=== PATIENT | female | born 1935 | race Caucasian/White ===

== ENCOUNTER 2016-03-10 09:25 | Emergency (ER) | payer MEDICARE, OTHER ==
[2016-03-10] MEDS ORDERED: KETOROLAC TROMETHAMINE 30 MG/1ML VIAL ONE (09:48)
[2016-03-10] MEDS: 0.9 % SODIUM CHLORIDE 1,000 ML IV SCH (10:00)
[2016-03-10] MEDS: KETOROLAC TROMETHAMINE 30 MG/1ML VIAL IVP ONE (10:02)
--- NOTE | 2016-03-10 10:04 | ED Physician Documentation ---
General Adult - HISTORIAN Historian: patient - HPI Chief Complaint: General Adult Onset: hours Timing: still present Further Comments: yes (80 yo white female who resides at [facility]. Over the last 4 days has been noted to have some dark cloudy urine. This AM patient became tachycardic with a fever of 102. Patient states that she has not felt well today but no specific complaints. Denies and dysuria, urgency or frequency. Has multiple medical problems including atrial fibrilation. She is on chronic anticoagulation therapy. She is currently being treated for an open wound to the right heal.) Last known Well Date: 03/09/16 Last Known Well Time: 22:00 - ROS CONST: fever - PAST HX Past History: A-Fib, other (spinal stenosis, fall with cervical fracture with quadraplegia, polyarthritis, hyperlipidemia) Other History: diabetes Type 2, other (ECHO shows EF 35%) Surgeries/Procedures: other (Total knee replacement) Immunizations: other (unknown) Allergies/Adverse Reactions: Allergies Allergy/AdvReac Type Severity Reaction Status Date / Time Penicillins Allergy Verified 03/10/16 11:50 Sulfa (Sulfonamide Allergy Verified 03/10/16 11:50 Antibiotics) Home Medications: Ambulatory Orders Medication Instructions Recorded Aspirin [Sajan] 81 mg PO DAILY 03/10/16 Cholecalciferol [Vitamin D-3] 5,000 unit PO DAILY 03/10/16 Docusate Sodium [Colace] 200 mg PO BID 03/10/16 Gabapentin [Neurontin] 800 mg PO HS 03/10/16 Lidocaine/Transparent Dressing 1 each TP AM 03/10/16 [Lidocaine 4% Kit] Lisinopril [Prinivil] 2.5 mg PO QD 03/10/16 Loratadine [Claritin] 10 mg PO DAILY 03/10/16 Metoprolol Tartrate [Lopressor] 25 mg PO BID 03/10/16 Pnv95/Ferrous Fumarate/FA 1 each PO DAILY 03/10/16 [ Caplet] Sennosides [Senna] 2 tab PO BID 03/10/16 Warfarin Sodium [Coumadin] 5 mg PO 1800 03/10/16 amLODIPine BESYLATE [Norvasc] 5 mg PO DAILY 03/10/16 - SOCIAL HX Smoking History: non-smoker Alcohol Use: none Drug Use: none - FAMILY HX Family History: No (unable to obtain) - REVIEWED ASSESSMENTS Nursing Assessment Reviewed: Yes Vitals Reviewed: Yes Progress - Progress Progress: 11:16 Patient has been given > 1000 cc NS, is on second bag, patient continues to have some tachycardia related to atrial fib running 120-140. BP has become soft at time with systolic in the 60, is now 99/58. Will give digoxin to try to slow heart rate down some. 12:04 Patient has had >1500cc NS, has been given 0.25mg of digoxin in some mild improvement in her tachycardia. Mentation remains good. Chest x-ray poor tech, possible cardiomegally with mild vascular congestion. ED Results Lab/Radiology - Lab Results Lab Results: EKG: Atrial fib with rapid ventricular response, no acute ischemic changes noted. - Orders Orders: ED Orders Category Date Time Status Ketorolac Tromethamine [Toradol] Med 03/10/16 09:48 Discontinued 30 mg .ROUTE .STK-MED ONE General Adult Physical Exam - PHYSICAL EXAM GENERAL APPEARANCE: patient is answering questions appropriately but is confused some. EENT: pharynx normal, dry mucous membranes NECK: normal inspection, thyroid normal, supple RESPIRATORY: no resp distress, chest non-tender, breath sounds normal. No: wheezes, rales, rhonchi CVS: heart sounds normal, equal pulses, no gallop, tachycardia. No: murmur ABDOMEN: soft, no organomegaly, normal bowel sounds, no abdominal bruit, no distension, non-tender, other (g tube in place) SKIN: warm/dry, normal color EXTREMITIES: other NEURO: oriented X3, CN's nml as tested, sensation nml. No: motor nml Discharge Clincal Impression: UTI (urinary tract infection), early sepsis, Atrial fibrillation with rapid ventricular response Home Medications: Ambulatory Orders Aspirin [Sajan] 81 mg PO DAILY 03/10/16 Cholecalciferol [Vitamin D-3] 5,000 unit PO DAILY 03/10/16 Docusate Sodium [Colace] 200 mg PO BID 03/10/16 Gabapentin [Neurontin] 800 mg PO HS 03/10/16 Lidocaine/Transparent Dressing [Lidocaine 4% Kit] 1 each TP AM 03/10/16 Lisinopril [Prinivil] 2.5 mg PO QD 03/10/16 Loratadine [Claritin] 10 mg PO DAILY 03/10/16 Metoprolol Tartrate [Lopressor] 25 mg PO BID 03/10/16 Pnv95/Ferrous Fumarate/FA [ Caplet] 1 each PO DAILY 03/10/16 Sennosides [Senna] 2 tab PO BID 03/10/16 Warfarin Sodium [Coumadin] 5 mg PO 1800 03/10/16 amLODIPine BESYLATE [Norvasc] 5 mg PO DAILY 03/10/16 Condition: Stable Disposition: HOME, SELF-CARE Decision to Admit: [id number] Date of Decison to Admit: 03/10/16 Decision Time: 12:15
[2016-03-10 10:24] LABS: eGFR (African) > 60; eGFR (Non-African) > 60
[2016-03-10 10:36] LABS: MONOCYTES % 3 % (0-11); SEGMENTED NEUTROPHILS % 86 % (39-79)
[2016-03-10] MEDS ORDERED: 0.9 % SODIUM CHLORIDE 1,000 ML IV ONE (10:46)
[2016-03-10] MEDS ORDERED: ACETAMINOPHEN 325 MG TABLET PO ONE (11:01)
[2016-03-10] MEDS: 0.9 % SODIUM CHLORIDE 500 ML IV ONE (11:20)
[2016-03-10 11:29] LABS: APPEARANCE,URINE Cloudy (CLEAR); COLOR,URINE Orange (YELLOW); OCCULT BLOOD,URINE 2+ (NEGATIVE); PH URINE 5.5 (5.0 - 8.0); UROBILINOGEN URINE 0.2 Eu (0.2-1.0)
[2016-03-10] MEDS: DIGOXIN 250MCG/1ML IVP ONE (11:39)
[2016-03-10] MEDS ORDERED: DIGOXIN 250MCG/1ML IVP ONE (12:08)
[2016-03-10] MEDS ORDERED: cefTRIAXone SODIUM 1 GM VIAL ONE (12:42)
[2016-03-10] MEDS ORDERED: 0.9 % SODIUM CHLORIDE 100 ML IV ONE (12:43)
[2016-03-10] MEDS: cefTRIAXone SODIUM 1 GM in 0.9 % SODIUM CHLORIDE 50 ML IV SCH (12:45)
[2016-03-10 13:44] VITALS: BP 106/57
--- NOTE | 2016-03-10 14:06 | Diagnostic Imaging Report ---
[facility] [address] [facility].[address] [address] Report Submission Date: Mar 10, 2016 12:00:58 PM CLAY DIGGER Patient Study Name: BEVERLY TODD Date: Mar 10, 2016 10:23:03 AM CLAY DIGGER Modality Type: CR Gender: F Description: SHOULDER : 31 Institution: [facility] Physician: NICOLAS JOHNSON Right shoulder - two views Clinical history: Pain. Findings: Examination right shoulder in AP and transscapular Y views demonstrates inferior subluxation of the humerus relative to the glenoid. There is no evidence of anterior or posterior displacement on the transscapular view. Degenerative changes are seen in the acromioclavicular joint. Impression: 1. Inferior subluxation of the humerus. 2. Degenerative changes. Electronically signed on Mar 10, 2016 12:00:58 PM CLAY DIGGER by: Endy COVARRUBIAS
--- NOTE | 2016-03-10 14:06 | Diagnostic Imaging Report ---
[facility] [address] [facility] [address] [place], [place]. [address] Report Submission Date: Mar 10, 2016 12:01:39 PM [employer]ORS AND GENERAT[employer] INSPECTOR Patient Study Name: BEVERLY TODD Date: Mar 10, 2016 10:21:03 AM MOTORS AND GENERATORS INSPECTOR Modality Type: CR Gender: F Description: CHEST : 31 Institution: [facility] Physician ELIZABETH VALENZUELA - ER Chest AP portable The exam: March 10, 2016. Clinical history: Shortness of breath and febrile. Findings: There are no comparison studies. Cardiomegaly is present. There is no definite infiltrate or effusion, however, the left lung base is poorly visualized. The trachea is midline. There is mild pulmonary vascular congestion. Impression: Cardiomegaly and mild pulmonary vascular congestion. Electronically signed on Mar 10, 2016 12:01:39 PM MOTORS AND GENERATORS INSPECTOR by: Ness COVARRUBIAS
--- NOTE | 2016-03-10 16:57 | Diagnostic Imaging Report ---
[facility] [address] [facility] [address] [address] Report Submission Date: Mar 10, 2016 4:02:00 PM DETAILER Patient Study Name: BEVERLY TODD Date: Mar 10, 2016 10:26:04 AM DETAILER Modality Type: CR Gender: F Description: UPPER EXTREMITY : 31 Institution: [facility] Physician: NICOLAS JOHNSON Right elbow 2 views portable Clinical history: Pain Very small marginal spurs. No fracture, dislocation or joint effusion. Impression: Mild osteoarthritis without fractures Electronically signed on Mar 10, 2016 4:02:00 PM DETAILER by: Lorenzo COVARRUBIAS
== END 2016-03-10 13:15 | disposition home or self-care (01) ==
LOC: ED 09:25
DX: N39.0 Urinary tract infection, site not specified (principal); I48.91 Unspecified atrial fibrillation
CPT/HCPCS: 51702; 71010; 73030; 73070; 80053; 81002; 84484; 85025; 85610; 87040; 87088; 87400; 93005; J0696; J1160; J1885; J7030; J7060; 87186; 96372; 99283; 99284; S1016

== ENCOUNTER 2016-03-28 08:10 | Inpatient (IN) | payer MEDICARE, OTHER ==
[2016-03-28 08:31] LABS: APPEARANCE,URINE Slightly Cloudy (CLEAR); COLOR,URINE Yellow (YELLOW); OCCULT BLOOD,URINE 2+ (NEGATIVE); PH URINE 5.5 (5.0 - 8.0); UROBILINOGEN URINE 0.2 Eu (0.2-1.0)
[2016-03-28 08:32] LABS: BASOPHILS % 0.3 (0.0-1.5); EOSINOPHILS % 1.2 % (0.0-6.8); LYMPHOCYTES # 1.4 # k/uL (0.6-4.0); MONOCYTES # 0.6 # k/uL (0.0-0.9); MONOCYTES % 3.4 % (0.0-11.0); NEUTROPHILS # 14.2 # k/uL (1.4-7.7)
[2016-03-28 08:49] LABS: eGFR (African) > 60; eGFR (Non-African) > 60
--- NOTE | 2016-03-28 08:51 | ED Physician Documentation ---
General Adult - HISTORIAN Historian: patient - HPI Stated Complaint: Urinary Symptoms Chief Complaint: General Adult Timing: still present Further Comments: yes (Yesterday [facility] staff reports that patient seemed to be confused some. Continues today and was brought to the ED for further evaluation and treatment. Patient states that she has been sleepy some over the last two days denies any other complaints. No chest pain/pressure, cough, abd pain, body aches, headaces fever or chills. Patient denises any UTI symptoms.) - ROS CONST: denies: fever - PAST HX Past History: A-Fib, hypertension, other (pressure ulcer right heal) Other History: diabetes Type 2, other (spinal stenosis cervical area, quadraplegia) Surgeries/Procedures: other (cervical spinal fusion related to fall) Allergies/Adverse Reactions: Allergies Allergy/AdvReac Type Severity Reaction Status Date / Time Penicillins Allergy Verified 03/10/16 11:50 Sulfa (Sulfonamide Allergy Verified 03/10/16 11:50 Antibiotics) fentanyl AdvReac No Reaction Verified 03/28/16 08:27 Home Medications: Ambulatory Orders Medication Instructions Recorded Aspirin [Sajan] 81 mg PO DAILY 03/10/16 Cholecalciferol [Vitamin D-3] 5,000 unit PO DAILY 03/10/16 Docusate Sodium [Colace] 200 mg PO BID 03/10/16 Gabapentin [Neurontin] 800 mg PO HS 03/10/16 Lidocaine/Transparent Dressing 1 each TP AM 03/10/16 [Lidocaine 4% Kit] Lisinopril [Prinivil] 20 mg PO QD 03/10/16 Loratadine [Claritin] 10 mg PO DAILY 03/10/16 Metoprolol Tartrate [Lopressor] 25 mg PO BID 03/10/16 Pnv95/Ferrous Fumarate/FA 1 each PO DAILY 03/10/16 [ Caplet] Sennosides [Senna] 2 tab PO BID 03/10/16 Warfarin Sodium [Coumadin] 4 mg PO 1800 03/10/16 amLODIPine BESYLATE [Norvasc] 5 mg PO DAILY 03/10/16 - SOCIAL HX Smoking History: quit greater than 1 year (years ago) Alcohol Use: none Drug Use: none - FAMILY HX Family History: No - VITAL SIGNS Vital Signs: Vital Signs Temp Pulse Resp BP Pulse Ox 97.7 F 102 H 20 93/52 93 03/28/16 08:10 03/28/16 08:10 03/28/16 08:10 03/28/16 08:10 03/28/16 08:10 - REVIEWED ASSESSMENTS Nursing Assessment Reviewed: Yes Vitals Reviewed: Yes ED Results Lab/Radiology - Lab Results Lab Results: Lab Results 03/28/16 03/28/16 08:20 08:20 WBC 16.60 K/ul H K/ul (4.00-12.00) RBC 4.01 M/ul M/ul (3.90-5.20) Hgb 11.6 g/dL L g/dL (12.0-16.0) Hct 36.8 % % (34.5-46.5) MCV 91.8 fl fl (80.0-100.0) MCH 29.0 pg pg (28.0-34.0) MCHC 31.6 g/dL g/dL (30.0-36.0) RDW 14.6 % H % (11.3-14.3) Plt Count 246 K/mm3 K/mm3 (130-400) Neut % (Auto) 86.0 % H % (39.0-79.0) Lymph % (Auto) 8.5 % L % (16.0-50.0) [place] % (Auto) 3.4 % % (0.0-11.0) Eos % (Auto) 1.2 % % (0.0-6.8) Baso % (Auto) 0.3 (0.0-1.5) Neut # 14.2 # k/uL H # k/uL (1.4-7.7) Lymph # 1.4 # k/uL # k/uL (0.6-4.0) [place] # 0.6 # k/uL # k/uL (0.0-0.9) Eos # 0.2 # k/uL # k/uL (0.0-0.6) Baso # 0.0 # k/uL # k/uL (0.0-0.5) Reactive Lymphs % 0.6 % % (0.0-5.0) Reactive Lymphs # 0.1 # k/uL # k/uL (0.0-0.8) Urine Color Yellow (YELLOW) Urine Appearance Slightly cloudy (CLEAR) Urine pH 5.5 (5.0 - 8.0) Ur Specific [place] 1.025 (1.010-1.030) Urine Protein 2+ mg/dL H mg/dL (NEGATIVE) Urine Ketones Trace mg/dL mg/dL (NEGATIVE) Urine Occult Blood 2+ H (NEGATIVE) Urine Nitrite Positive (NEGATIVE) Urine Bilirubin 1+ H (NEGATIVE) Urine Urobilinogen 0.2 Eu Eu (0.2-1.0) Ur Leukocyte Esterase 3+ H (NEGATIVE) Urine RBC 2-5 H (0-2 HPF) Urine WBC >100 H (0-5 HPF) Ur Squamous Epith Cells Few (NEG-FEW) Urine Glucose Negative mg/dL mg/dL (NEGATIVE) - Orders Orders: ED Orders Category Date Time Status Urinary catheterization 1T Care 03/28/16 08:20 Active CBC/PLATELET/DIFF Routine Lab 03/28/16 08:20 Completed CMP Routine Lab 03/28/16 08:20 Received PT [PT-INR] Routine Lab 03/28/16 08:20 Received URINALYSIS Routine Lab 03/28/16 08:20 Received General Adult Physical Exam - PHYSICAL EXAM GENERAL APPEARANCE: mild distress EENT: eye inspection normal, dry mucous membranes NECK: normal inspection, supple. No: lymphadenopathy, stiff neck RESPIRATORY: no resp distress, chest non-tender, breath sounds normal. No: wheezes, rales, rhonchi CVS: heart sounds normal, equal pulses, irregularly irregular rhy ABDOMEN: soft, no organomegaly, normal bowel sounds, no abdominal bruit, no distension, non-tender. No: distended, guarding BACK: no CVA tenderness SKIN: warm/dry, normal color, other (open wound to the righ heal, RLE has some warmth and erythema) EXTREMITIES: non-tender NEURO: oriented X3 (mildly lethatgic), CN's nml as tested, sensation nml ( decrease motr strength in all four ext, R>L). No: motor nml Discharge Clincal Impression: Urinary tract infection, Cellulitis of right lower leg Home Medications: Ambulatory Orders Aspirin [Sajan] 81 mg PO DAILY 03/10/16 Cholecalciferol [Vitamin D-3] 5,000 unit PO DAILY 03/10/16 Docusate Sodium [Colace] 200 mg PO BID 03/10/16 Gabapentin [Neurontin] 800 mg PO HS 03/10/16 Lidocaine/Transparent Dressing [Lidocaine 4% Kit] 1 each TP AM 03/10/16 Lisinopril [Prinivil] 20 mg PO QD 03/10/16 Loratadine [Claritin] 10 mg PO DAILY 03/10/16 Metoprolol Tartrate [Lopressor] 25 mg PO BID 03/10/16 Pnv95/Ferrous Fumarate/FA [ Caplet] 1 each PO DAILY 03/10/16 Sennosides [Senna] 2 tab PO BID 03/10/16 Warfarin Sodium [Coumadin] 4 mg PO 1800 03/10/16 amLODIPine BESYLATE [Norvasc] 5 mg PO DAILY 03/10/16 Condition: Stable Disposition: 09 ADMITTED INPATIENT Decision to Admit: [id number] Date of Decison to Admit: 03/28/16 Decision Time: 09:26
[2016-03-28] MEDS ORDERED: cefTRIAXone SODIUM ADVANTAGE 1 GM VIAL.PORT IV ONE (09:25)
[2016-03-28] MEDS ORDERED: 0.9 % SODIUM CHLORIDE 100 ML IV ONE (09:25)
[2016-03-28] MEDS: cefTRIAXone SODIUM 1 GM in 0.9 % SODIUM CHLORIDE 50 ML IV SCH (09:44)
[2016-03-28] MEDS: 0.9 % SODIUM CHLORIDE 1,000 ML IV SCH (10:40)
[2016-03-28] MEDS ORDERED: ENOXAPARIN SODIUM 40 MG/0.4 ML DISP.SYRIN SQ SCH (11:00)
--- NOTE | 2016-03-28 13:35 | History and Physical Report ---
History of Present Illnes - History of Present Illness Reason for Visit: Sepsis/UTI/RLE cellulitis History of Present Illness: This is an [address] [facility] who presented to the ER today with mental status changes and fever. She was noted to have a right lower extremity cellulitis, gross pyuria, hypotension and marked leukocytosis. She is admitted for IV antibiotics, IV fluid resuscitation and evaluation. Nursing at [facility] state that she is usually alert and oriented and talkative. Over the past few days, she has become less able to talk and this morning was difficult to arouse. As a result, they called me and I recommended that she be sent to the ER where the above findings were noted leading to her admission. - Past Medical History Cardiac: HTN, Syncope, Hyperlipidemia, Other (Left ventricular hypertrophy) Musculoskeletal: Other (Cervical spinal stenosis) Renal/: Other (Urinary retention) Endocrine: Diabetes (on oral medications) - Past Surgical History Past Surgical History: Total Knee Replacement (bilateral), Other (Feeding tube placement fall of 2015, now discontinued). denies: CABG - Past Social History Smoke: No Alcohol: None Drugs: None Lives: Other (At [facility]) - Health Maintenance Health Maintenance: Cholesterol Influenza Vaccine: Current for this Influenza Season Pneumonia Vaccine: Yes Resuscitation Status: Resusciation Status Resuscitation Status Do Not Resuscitate Review of Systems - Review of Systems Constitutional: Fever. negative: Chills Eyes: negative: pain ENT: negative: Ear Pain Respiratory: negative: Cough, Dry Cardiovascular: negative: Chest Pain Gastrointestinal: negative: Nausea, Vomiting Genitourinary: negative: Dysuria Musculoskeletal: Other (fairly dense right hemiparesis with some weakness of LUE and LLE). negative: Neck Pain Skin: Rash, Other (cellulitis of right lower extremity and open wound of right heel.) Neurological: Weakness, Confusion - Medications/Allergies Allergies/Adverse Reactions: Allergies Allergy/AdvReac Type Severity Reaction Status Date / Time Penicillins Allergy Verified 03/28/16 13:03 Sulfa (Sulfonamide Allergy Verified 03/28/16 13:03 Antibiotics) fentanyl AdvReac No Reaction Verified 03/28/16 13:03 Current Inpatient Medications: Current Inpatient Medications Amlodipine Besylate (Norvasc) 5 mg PO DAILY [facility] Aspirin (Aspirin) 81 mg PO DAILY [facility] Cholecalciferol (Vitamin D-3) 5,000 unit PO DAILY [facility] Docusate Sodium (Colace) 200 mg PO BID [facility] Gabapentin (Neurontin) 800 mg PO HS [facility] Ceftriaxone Sodium 1 gm/ (Sodium Chloride) 50 mls @ 100 mls/hr IV QD [facility] Last Admin: 03/28/16 09:44 Dose: 100 mls/hr Sodium Chloride (Normal Saline) 1,000 mls @ 100 mls/hr IV Q10H [facility] Lisinopril (Prinivil) 2.5 mg PO DAILY [facility] Loratadine (Claritin) 10 mg PO DAILY [facility] Miscellaneous (Metoprolol Tartrate [Lopressor]) 25 mg PO BID [facility] Sennosides (Senokot) mg PO BID [facility] Warfarin Sodium (Coumadin) 4 mg PO D [facility] Exam - Exam Vital Signs: Vital Signs (72 hours) 03/28/16 10:00 Pulse Rate [ 78 Pulse ox] Respiratory 18 Rate Blood Pressure 101/75 [Right Arm] O2 Sat by Pulse 95 Oximetry General: Oriented to Person, Moderate distress, Morbidly Obese. No: Alert, Oriented to Place, Oriented to Time HEENT: Atraumatic, PERRLA, Other (Mucous membranes dry) Neck: No: Stridor Lungs: Wheezes (scant) Cardiovascular: Regular rate Murmur: No: Systolic Murmur (body habitus makes evaluation of heart sound difficult) Murmur Location: No: [place] Abdomen: Normal bowel sounds, Soft, No tenderness, Other (scar from previous PEG tube) Genitourinary: Other Male Genitourinary: Other Female Genitourinary: No: Prolapse Integumentary: Normal, Dry Extremities: No clubbing, No cyanosis, No edema, Other (scars from bilateral TKRs, warmth and erythema of right anterior chacon, open wound of right heel is noted) Neurological: Right Sided Weakness, Generalized Weakness Psych/Mental Status: Other (Minimally responsive) Assessment/Plan - Assessment/Plan (1) Sepsis Status: Acute Current Visit: Yes Assessment: Due to UTI and RLE infection Plan: Continue Rocephin Add clindamycin (2) Cellulitis of right lower leg Status: Acute Current Visit: Yes Assessment: New finding Plan: Will expand coverage from rocephin to include clindamycin to cover gram negative /anaerobes (3) Urinary tract infection Status: Acute Current Visit: Yes Assessment: With resultant sepsis, possibly complicated by concommitant right lower extremity infection Plan: Blood and urine cultures are pending (4) Morbid obesity Status: Acute Current Visit: Yes Qualifiers: Obesity type: due to excess calories Qualified Code(s): E66.01 - Morbid ( severe) obesity due to excess calories Assessment: Chronic (5) Atrial fibrillation with rapid ventricular response Status: Acute Current Visit: No Assessment: Current rate controlled and with therapeutic INR VTE Assessment - RISK FACTOR SCORE VTE RISK FACTOR SCORES: AGE OVER 60 YEARS, ACUTE INFECTION OTHER THEN SEPSIS - RISK VTE MODERATE RISK: SCORE OF 2 (RISK PROXIMAL DVT 2-4%) PROPHYAXIS NEEDED (Does not need pharmaceutical DVT prophylaxis due to warfarin therapy, added BETTY hernandez)
[2016-03-28] MEDS ORDERED: IBUPROFEN 200 MG TABLET PO PRN (13:44)
[2016-03-28] MEDS ORDERED: ACETAMINOPHEN 325 MG TABLET PO PRN (13:44)
[2016-03-28] MEDS ORDERED: ONDANSETRON HCL 4 MG TAB.RAPDIS PO PRN (13:50)
[2016-03-28] MEDS ORDERED: IBUPROFEN 400 MG TABLET PO ONE (14:48)
[2016-03-28] MEDS ORDERED: WARFARIN SODIUM 1 MG TABLET PO ONE (14:48)
[2016-03-28] MEDS ORDERED: METOPROLOL TARTRATE 50 MG TABLET ONE ×2 (14:48→15:55)
[2016-03-28] MEDS: METOPROLOL TARTRATE 25 MG PO SCH ×2 (14:51→21:14)
[2016-03-28] MEDS: LISINOPRIL 2.5 MG TABLET PO SCH (14:51)
[2016-03-28] MEDS ORDERED: GABAPENTIN 100 MG CAPSULE ONE (15:55)
[2016-03-28] MEDS ORDERED: GABAPENTIN 300 MG CAPSULE ONE (15:55)
[2016-03-28 18:11] VITALS: BMI 43.8
[2016-03-28] MEDS: WARFARIN SODIUM 1 MG TABLET PO SCH (18:32)
[2016-03-28] MEDS: DOCUSATE SODIUM 100 MG CAPSULE PO SCH (21:13)
[2016-03-28] MEDS: GABAPENTIN 100 MG CAPSULE PO SCH (21:13)
[2016-03-28] MEDS: MELATONIN 3 MG TABLET PO SCH ×2 (22:53→23:28)
[2016-03-29] MEDS: 0.9 % SODIUM CHLORIDE 1,000 ML IV SCH ×4 (02:04→16:30)
[2016-03-29] MEDS ORDERED: METOPROLOL TARTRATE 50 MG TABLET ONE ×2 (04:56→12:30)
[2016-03-29 06:46] LABS: BASOPHILS % 0.4 (0.0-1.5); EOSINOPHILS % 2.1 % (0.0-6.8); LYMPHOCYTES # 1.7 # k/uL (0.6-4.0); MEAN CORPUSCULAR HEMOGLOBIN 29.7 pg (28.0-34.0); MONOCYTES # 0.4 # k/uL (0.0-0.9); MONOCYTES % 5.3 % (0.0-11.0); NEUTROPHILS # 5.6 # k/uL (1.4-7.7)
[2016-03-29 07:00] LABS: eGFR (African) > 60; eGFR (Non-African) > 60
[2016-03-29] MEDS: MULTIVITAMIN 1 EACH TABLET PO SCH (08:41)
[2016-03-29] MEDS: amLODIPine BESYLATE 5 MG TABLET PO SCH (08:41)
[2016-03-29] MEDS: ASPIRIN 81 MG CHEW TAB PO SCH (08:41)
[2016-03-29] MEDS: LORATADINE 10 MG TABLET PO SCH (08:41)
[2016-03-29] MEDS: CHOLECALCIFEROL 1,000 UNIT TABLET PO SCH (08:42)
[2016-03-29] MEDS: METOPROLOL TARTRATE 25 MG PO SCH ×2 (08:42→21:45)
[2016-03-29] MEDS: LISINOPRIL 2.5 MG TABLET PO SCH (08:42)
[2016-03-29] MEDS: DOCUSATE SODIUM 100 MG CAPSULE PO SCH ×2 (08:42→21:46)
[2016-03-29] MEDS ORDERED: cefTRIAXone SODIUM ADVANTAGE 1 GM VIAL.PORT IV ONE (09:10)
[2016-03-29] MEDS ORDERED: 0.9 % SODIUM CHLORIDE 100 ML IV ONE (09:10)
[2016-03-29] MEDS: cefTRIAXone SODIUM 1 GM in 0.9 % SODIUM CHLORIDE 50 ML IV SCH (09:28)
--- NOTE | 2016-03-29 11:29 | Inpatient Progress Note ---
Subjective - Required Recertification Statement I anticipate X number of days because-include discharge plan: 2 - Review of Systems Events since last encounter: Sushma is feeling much better this morning and is now alert and oriented. Her white count has come down to 8K and she is now afebrile. She has some appetite and is anxious for discharge back to [facility]. General: Denies: Chills, Night Sweats HEENT: Denies: Head Aches Pulmonary: Denies: Dyspnea, Cough Cardiovascular: Denies: Chest Pain Gastrointestinal: Denies: Nausea, Vomiting Genitourinary: Denies: Dysuria Musculoskeletal: Denies: Neck Pain, Shoulder Pain Neurological: Weakness, Confusion (markedly improved). Denies: Seizures Objective - Exam Vitals and I&O: Vital Signs Temp 98.5 F 03/29/16 06:00 Pulse 77 03/29/16 06:00 Resp 20 03/29/16 06:00 BP 136/72 03/29/16 06:00 Pulse Ox 100 03/29/16 06:00 Intake & Output 03/28/16 03/28/16 03/29/16 11:59 23:59 11:59 Intake Total 780 1200 Balance 780 1200 Weight 127.006 kg Intake: IV 1200 Left Hand 1200 Oral 780 Other: Voiding Method Incontinent # Voids 1 2 # Bowel Movements 1 General: Alert, Oriented to Person, Oriented to Place, Oriented to Time, Cooperative, No acute distress HEENT: Atraumatic Neck: Supple, No JVD Lungs: Clear to auscultation, Normal air movement, Prolonged Expiration (very mildly) Cardiovascular: Regular rate Abdomen: Normal bowel sounds, Soft, No tenderness Extremities: No clubbing, Other (Warmth and erythema of right anterior chacon is markedly improved) Skin: Normal Neurological: Normal speech Psych/Mental Status: Mental status NL - Results Results: Laboratory Results WBC 8.00 K/ul (4.00-12.00) 03/29/16 06:25 RBC 3.72 M/ul (3.90-5.20) L 03/29/16 06:25 Hgb 11.0 g/dL (12.0-16.0) L 03/29/16 06:25 Hct 35.2 % (34.5-46.5) 03/29/16 06:25 MCV 94.6 fl (80.0-100.0) 03/29/16 06:25 MCH 29.7 pg (28.0-34.0) 03/29/16 06:25 MCHC 31.4 g/dL (30.0-36.0) 03/29/16 06:25 RDW 14.7 % (11.3-14.3) H 03/29/16 06:25 Plt Count 200 K/mm3 (130-400) 03/29/16 06:25 Neut % (Auto) 69.7 % (39.0-79.0) 03/29/16 06:25 Lymph % (Auto) 20.9 % (16.0-50.0) 03/29/16 06:25 [place] % (Auto) 5.3 % (0.0-11.0) 03/29/16 06:25 Eos % (Auto) 2.1 % (0.0-6.8) 03/29/16 06:25 Baso % (Auto) 0.4 (0.0-1.5) 03/29/16 06:25 Neut # 5.6 # k/uL (1.4-7.7) 03/29/16 06:25 Lymph # 1.7 # k/uL (0.6-4.0) 03/29/16 06:25 [place] # 0.4 # k/uL (0.0-0.9) 03/29/16 06:25 Eos # 0.2 # k/uL (0.0-0.6) 03/29/16 06:25 Baso # 0.0 # k/uL (0.0-0.5) 03/29/16 06:25 Reactive Lymphs % 1.6 % (0.0-5.0) 03/29/16 06:25 Reactive Lymphs # 0.1 # k/uL (0.0-0.8) 03/29/16 06:25 PT 25.5 Seconds (9.7-11.5) H 03/28/16 08:20 INR 2.4 (0.9-1.1) H 03/28/16 08:20 Sodium 135 mmol/L (136-145) L 03/29/16 06:25 Potassium 4.2 mmol/L (3.5-5.0) 03/29/16 06:25 Chloride 105 mmol/L (98-110) 03/29/16 06:25 Carbon Dioxide 30 mmol/L (20-32) 03/29/16 06:25 BUN 19 mg/dL (10-26) 03/29/16 06:25 Creatinine 0.7 mg/dL (0.4-1.5) 03/29/16 06:25 Estimated Creat Clear 146 03/29/16 06:25 Est GFR ( Amer) > 60 (60-) 03/29/16 06:25 Est GFR (Non-Af Amer) > 60 (60-) 03/29/16 06:25 Glucose 99 mg/dL (70-99) 03/29/16 06:25 Calcium 9.5 mg/dL (8.5-10.5) 03/29/16 06:25 Total Bilirubin 0.5 mg/dL (0.2-1.2) 03/29/16 06:25 AST 15 U/L (0-41) 03/29/16 06:25 ALT 10 U/L (0-45) 03/29/16 06:25 Alkaline Phosphatase 39 U/L (46-116) L 03/29/16 06:25 Total Protein 7.1 g/dL (6.0-8.5) 03/29/16 06:25 Albumin 3.2 g/dL (3.0-5.5) 03/29/16 06:25 Urine Color Yellow (YELLOW) 03/28/16 08:20 Urine Appearance Slightly cloudy (CLEAR) 03/28/16 08:20 Urine pH 5.5 (5.0 - 8.0) 03/28/16 08:20 Ur Specific [place] 1.025 (1.010-1.030) 03/28/16 08:20 Urine Protein 2+ mg/dL (NEGATIVE) H 03/28/16 08:20 Urine Ketones Trace mg/dL (NEGATIVE) 03/28/16 08:20 Urine Occult Blood 2+ (NEGATIVE) H 03/28/16 08:20 Urine Nitrite Positive (NEGATIVE) 03/28/16 08:20 Urine Bilirubin 1+ (NEGATIVE) H 03/28/16 08:20 Urine Urobilinogen 0.2 Eu (0.2-1.0) 03/28/16 08:20 Ur Leukocyte Esterase 3+ (NEGATIVE) H 03/28/16 08:20 Urine RBC 2-5 (0-2 HPF) H 03/28/16 08:20 Urine WBC >100 (0-5 HPF) H 03/28/16 08:20 Ur Squamous Epith Cells Few (NEG-FEW) 03/28/16 08:20 Urine Glucose Negative mg/dL (NEGATIVE) 03/28/16 08:20 Assessment/Plan - Assessment/Plan (1) Sepsis Status: Acute Current Visit: Yes Assessment: Improved with current antibiotic therapy (2) Cellulitis of right lower leg Status: Acute Current Visit: Yes Assessment: Improved (3) Urinary tract infection Status: Acute Current Visit: Yes Assessment: Improved (4) Morbid obesity Status: Acute Current Visit: Yes Qualifiers: Obesity type: due to excess calories Qualified Code(s): E66.01 - Morbid ( severe) obesity due to excess calories (5) Atrial fibrillation with rapid ventricular response Status: Acute Current Visit: No Assessment: With therapeutic INR
[2016-03-29] MEDS ORDERED: GABAPENTIN 100 MG CAPSULE ONE (12:30)
[2016-03-29] MEDS ORDERED: GABAPENTIN 300 MG CAPSULE ONE (12:30)
[2016-03-29] MEDS ORDERED: WARFARIN SODIUM 1 MG TABLET PO ONE (12:30)
[2016-03-29] MEDS ORDERED: NYSTATIN POWDER BOTTLE TP ONE (14:55)
[2016-03-29] MEDS: WARFARIN SODIUM 1 MG TABLET PO SCH (16:13)
--- NOTE | 2016-03-29 17:06 | Diagnostic Imaging Report ---
[facility] [address] [facility].[address] [address] ~ ~ ~ ~ Report Submission Date: Mar 29, 2016 12:14:41 PM TILE AND MARBLE INSTALLER Patient ~ Study Name: BEVERLY TODD ~ Date: Mar 29, 2016 11:52:41 AM TILE AND MARBLE INSTALLER ~ Modality Type: CR Gender: F ~ Description: CHEST : 31 ~ Institution: [facility] Physician: NED CAMARA ~ ~ ~ ~ Chest -one view CLINICAL HISTORY: ~ Cough and fever. ~Leukocytosis. FINDINGS: ~ Examination of the chest single portable AP view 03/29/2016 1152 hr with comparison to examination of 03/10/2016 demonstrates cardiomegaly and aortic atherosclerosis. ~The retrocardiac region is dense suggesting left lower lobe infiltrate or atelectasis. IMPRESSION: ~ Hypoventilation. ~ Dense retrocardiac region consistent with left lower lobe infiltrate or atelectasis. ~ Electronically signed on Mar 29, 2016 12:14:41 PM TILE AND MARBLE INSTALLER by: Endy COVARRUBIAS
[2016-03-29] MEDS ORDERED: WARFARIN SODIUM 1 MG TABLET PO SCH (18:00)
[2016-03-29] MEDS: GABAPENTIN 100 MG CAPSULE PO SCH (21:47)
[2016-03-29] MEDS: NYSTATIN POWDER BOTTLE TP SCH (21:47)
[2016-03-29] MEDS: MELATONIN 3 MG TABLET PO SCH (21:47)
[2016-03-30] MEDS: 0.9 % SODIUM CHLORIDE 1,000 ML IV SCH ×2 (02:11→12:29)
[2016-03-30] MEDS ORDERED: METOPROLOL TARTRATE 50 MG TABLET ONE (04:33)
--- NOTE | 2016-03-30 07:57 | Discharge Summary ---
Discharge Summary - Discharge Sumary History of Present Illness: This is an [address] Andrews [facility] who presented to the ER today with mental status changes and fever. She was noted to have a right lower extremity cellulitis, gross pyuria, hypotension and marked leukocytosis. She is admitted for IV antibiotics, IV fluid resuscitation and evaluation. Nursing at [facility] state that she is usually alert and oriented and talkative. Over the past few days, she has become less able to talk and this morning was difficult to arouse. As a result, they called me and I recommended that she be sent to the ER where the above findings were noted leading to her admission. Condition at Discharge: Stable Home Medications: Ambulatory Orders Medication Instructions Recorded Aspirin [Sajan] 81 mg PO DAILY 03/10/16 Cholecalciferol [Vitamin D-3] 5,000 unit PO DAILY 03/10/16 Docusate Sodium [Colace] 200 mg PO BID 03/10/16 Gabapentin [Neurontin] 800 mg PO HS 03/10/16 Lidocaine/Transparent Dressing 1 each TP AM 03/10/16 [Lidocaine 4% Kit] Lisinopril [Prinivil] 20 mg PO QD 03/10/16 Loratadine [Claritin] 10 mg PO DAILY 03/10/16 Metoprolol Tartrate [Lopressor] 25 mg PO BID 03/10/16 Pnv95/Ferrous Fumarate/FA 1 each PO DAILY 03/10/16 [ Caplet] Sennosides [Senna] 2 tab PO BID 03/10/16 Warfarin Sodium [Coumadin] 4 mg PO 1800 03/10/16 amLODIPine BESYLATE [Norvasc] 5 mg PO DAILY 03/10/16 Clindamycin HCl 300 mg PO TID #21 capsule 03/29/16 Cefuroxime Axetil [Ceftin] 250 mg PO BID #14 tablet 03/30/16 Consultations this Visit: None Procedures this Visit: None Allergies/Adverse Reactions: Allergies Allergy/AdvReac Type Severity Reaction Status Date / Time Penicillins Allergy Verified 03/28/16 13:03 Sulfa (Sulfonamide Allergy Verified 03/28/16 13:03 Antibiotics) fentanyl AdvReac No Reaction Verified 03/28/16 13:03 Patient Problems: Current Active Problems Problem Status Onset Cellulitis of right lower leg Acute Morbid obesity Acute Sepsis Acute Urinary tract infection Acute Discharge Summary: Patient was admitted for mental status changes due to sepsis from UTI and RLE cellulitis. She was treated with clindamycin and IV rocephin. She responded well and mental status improved. On coumadin for Afib - INR monitored without changes. Urine culture grew out proteus and VRE. She will be treated with 7 more days of Ceftin along with clindamycin for 7 days. Hospital Course: Discharge Dx: Sepsis; RLE cellulitis; UTI; Afib; morbid obesity. Disposition: Elen Wilcoxor
[2016-03-30] MEDS ORDERED: METOPROLOL TARTRATE 50 MG TABLET PO SCH (09:00)
[2016-03-30] MEDS: LISINOPRIL 2.5 MG TABLET PO SCH (09:20)
[2016-03-30] MEDS: CHOLECALCIFEROL 1,000 UNIT TABLET PO SCH (09:21)
[2016-03-30] MEDS: ASPIRIN 81 MG CHEW TAB PO SCH (09:21)
[2016-03-30] MEDS: LORATADINE 10 MG TABLET PO SCH (09:21)
[2016-03-30] MEDS: DOCUSATE SODIUM 100 MG CAPSULE PO SCH (09:21)
[2016-03-30] MEDS: NYSTATIN POWDER BOTTLE TP SCH (09:21)
[2016-03-30] MEDS: MULTIVITAMIN 1 EACH TABLET PO SCH (09:21)
[2016-03-30] MEDS: amLODIPine BESYLATE 5 MG TABLET PO SCH (09:23)
[2016-03-30] MEDS: cefTRIAXone SODIUM 1 GM in 0.9 % SODIUM CHLORIDE 50 ML IV SCH (12:28)
[2016-03-30] MEDS: SENNOSIDES 8.6 MG TABLET PO SCH ×3 (13:43→14:01)
[2016-03-30 14:02] VITALS: BP 142/69
[2016-03-30] MEDS ORDERED: GABAPENTIN 100 MG CAPSULE PO SCH (21:00)
[2016-03-30] MEDS ORDERED: WARFARIN SODIUM 1 MG TABLET PO SCH (21:00)
[2016-03-30] MEDS ORDERED: GABAPENTIN 300 MG CAPSULE PO SCH (21:00)
== END 2016-03-30 14:40 | DRG 872 ==
LOC: ED 08:10 → SOUTH 09:33
PROVIDERS: ADMIT Family Medicine; ATTEND Family Medicine
DX: A41.9 Sepsis, unspecified organism (principal); L03.115 Cellulitis of right lower limb; N39.0 Urinary tract infection, site not specified; E66.01 Morbid (severe) obesity due to excess calories; I48.91 Unspecified atrial fibrillation
CPT/HCPCS: 36415; 51701; 71010; 80053; 81002; 85025; 85610; 87040; 87088; 87186; J0696; J7030; 99222; 99232; 99238; 99284

== ENCOUNTER 2017-01-19 12:32 | Outpatient (CLI) | payer MEDICARE, OTHER ==
--- NOTE | 2017-01-20 10:36 | HISTORY AND PHYSICAL REPORT ---
Dear Dr. Menjivar: HISTORY OF PRESENT ILLNESS: I had the opportunity of seeing Sushma Kilpatrick today as an outpatient at [facility]. As you are aware, Ms. Kilpatrick is a very nice 80-year- old white female who resides at [facility]. She has a chief complaint of right-sided hip and leg pain which has been developing over the past 6 months. She tells me the symptoms are not constant and they are intermittent in the right lateral hip radiating to the right anterior thigh to just below the knee. She denies pain on the left. She says that the symptoms are primarily in the right thigh anteriorly. Her history is significant in that she suffered a fall 2 years ago which resulted in a cervical fracture and right-sided hemiparesis, which has improved, but she has, otherwise, been wheelchair bound for the last 2 years. She is transferred on a Akira lift and she tells me that in all likelihood cannot lay prone on a procedure table. She also has a history of diabetes mellitus type 2 but it appears to be diet controlled, as I do not see that she is on any antihyperglycemic medication therapy. She does take gabapentin and tramadol for pain control and she says that she thinks this helps. She does not ambulate. She rates the pain as severe as 8 over 10 on a visual analog scale and as little as 2 over 10 on a visual analog scale and complains of symptoms which may move from one area of her body to another. PAST MEDICAL HISTORY: 1. History of atrial fibrillation. 2. Hypertension. 3. High cholesterol. 4. Sleep apnea and uses a CPAP. 5. Paralysis on her right side, although reported quadriplegia following a significant traumatic injury to her cervical spine approximately 2 years ago. 6. Dermatitis. 7. Major depression. 8. Anemia. 9. Diabetes mellitus, diet controlled. PAST SURGICAL HISTORY: 1. Bilateral total knee replacements. 2. Bilateral cataracts removed and lens implanted. 3. An extensive cervical fusion in approximately 2014 in [place]. CURRENT DAILY MEDICATIONS: 1. Amlodipine 5 mg daily. 2. Coumadin 3 mg daily. 3. Gabapentin 300 mg in the morning and at noon. 4. Tramadol 50 mg b.i.d. p.r.n. pain. 5. Metoprolol 37.5 mg b.i.d. 6. Loratadine 10 mg p.r.n. 7. MiraLAX 17 grams daily p.r.n. 8. Tums p.r.n. 9. Oyster shell calcium daily. 10. Gabapentin 900 mg at bedtime. 11. Colace 100 mg p.r.n. 12. Aspirin 81 mg daily. 13. Lisinopril 20 mg daily. 14. vitamins daily. 15. Vitamin D3, 5000 international units daily. ALLERGIES: 1. Fentanyl. 2. Penicillin. 3. Sulfa. 4. Bengay. SOCIAL HISTORY: She is a former smoker. She quit at age 48. She denies alcohol or recreational drug use. She resides at [facility]. FAMILY HISTORY: Mom with osteoarthritis. REVIEW OF SYSTEMS: She complains of right lower extremity and cellulitis infection in the last couple of months. Pain is worsened with movement or activity. Nothing seems to improve her pain. PHYSICAL EXAMINATION: General: This is a very pleasant obese white female in no apparent distress. Vital Signs: Height: 5 feet 4 inches. Weight: 134 kilograms. BP: 137/73, P : 70, R: 20, T: 96.3, oxygen saturation is 93% on room air. HEENT: Pupils are equal, round, and reactive to light and accommodation. Extraocular movements intact. No facial droop. Neck: There is full range of motion of the cervical spine. No evidence of adenopathy. Thyroid is nontender, not enlarged. Carotids are without bruits. Chest: Clear to auscultation bilaterally. Normal chest excursion. Heart: Regular rate and rhythm without murmur. Abdomen: Benign. Normoactive bowel sounds. Motor/sensory: Intact in the upper and lower extremities. Moves all extremities freely. Back: There are normal cervical, thoracic and lumbar curvatures. There are negative sacroiliac joint findings bilaterally. No evidence of pain or tenderness over the facet joints. Negative piriformis bilaterally. Negative straight leg raise. Extremities: There is markedly reduced strength in the lower extremities. The right leg is contracted. I can externally rotate the hip and I do not detect any sign of a Joaquim or Ayo's disorder. There is some discomfort at the gluteal notch. There is minimal movement in the lower leg or foot. ASSESSMENT: 1. Possible lumbar radiculitis versus osteoarthritis of the hip. 2. Polyarthropathy. 3. Right-sided hemiparesis, status post cervical spine injury. 4. Inability to lie prone. PLAN: At this point, I think it is very reasonable to start her on prednisone oral dosing with a taper and see if she responds to prednisone, keeping an eye on her blood sugars. I think it may be very difficult to obtain an MRI study or to perform a nerve root block or injection because of her inability to be positioned on a procedure table. I am going to start her on oral prednisone and contact Dr. Menjivar regarding such. cc: Dr. Rhonda COVARRUBIAS
== END 2017-01-19 12:33 ==
LOC: OUT 12:32
PROVIDERS: ATTEND Anesthesiology Pain Medicine
DX: M16.11 Unilateral primary osteoarthritis, right hip (principal); M47.9 Spondylosis, unspecified; G81.91 Hemiplegia, unspecified affecting right dominant side; I48.91 Unspecified atrial fibrillation; I10 Essential (primary) hypertension
CPT/HCPCS: 99213; G0463

== ENCOUNTER 2018-05-11 09:12 | Outpatient (CLI) | payer MEDICARE, OTHER ==
--- NOTE | 2018-05-12 08:37 | Diagnostic Imaging Report ---
ANTHONY BADILLO [facility] [address] [id number] Report Submission Date: May 12, 2018 7:55:09 AM CDT Patient Study Name: BEVERLY TODD Date: May 11, 2018 11:50:47 AM CDT Modality Type: CT\SR Gender: F Description: CTA RUNOFF : 31 Institution: [facility] Physician: ANTHONY BADILLO Computed tomography angiography of pelvis and lower extremities History: Nonhealing right lower extremity wound, diabetes Findings: Transverse pelvis and lower extremity sections are obtained after 94 mL intravenous contrast from which multiplanar 3D maximum intensity projections are obtained. The exam is limited by morbid obesity related artifact. Aortoiliac atherosclerotic calcification is present producing up to 50% left common iliac artery stenosis. Lower lumbar spondylosis, hysterectomy, and sigmoid diverticulosis are observed. A small umbilical hernia contains omentum. In the left lower extremity, the common femoral and profunda femoral arteries are patent. There is multifocal superficial femoral artery stenosis measuring up to 70% distally. Significant portions of the popliteal artery are obscured by knee arthroplasty streak artifact. Extensive peripheral edema is present. The distal popliteal artery is patent. There are multiple segmental occlusions of the anterior tibial artery. The peroneal artery is patent to the level of the distal calf. There is at least moderate multifocal posterior tibial artery stenosis and possibly short segment occlusions. The distal posterior tibial and dorsalis pedis arteries are patent to the level of the midfoot, beyond which images are not obtained. In the right lower extremity, the common femoral and profunda femoral arteries are patent and mildly diseased. Mild to moderate multifocal superficial femoral artery stenosis is present. The superficial femoral artery is occluded distally. Knee arthroplasty components obscure the proximal popliteal artery. The distal popliteal artery is patent. The runoff arteries are patent to the level of the midfoot with mild tibioperoneal trunk and posterior tibial artery stenoses observed. Severe peripheral edema is present. Impression: 1. Morbid obesity and severe peripheral edema significantly limit the exam. 2. 50% left common iliac artery stenosis. 3. Bilateral multifocal superficial femoral artery stenoses and distal right superficial femoral artery occlusion. 4. Portions of each popliteal artery are obscured by knee arthroplasty streak artifact. 5. Multiple segmental occlusions of the left anterior tibial artery and moderate multifocal left posterior tibial artery stenosis and possibly short segment occlusion. 6. Mild right lower extremity runoff disease. Electronically signed on May 12, 2018 7:55:09 AM CDT by: Herman COVARRUBIAS
== END 2018-05-11 09:14 ==
LOC: RAD 09:12
PROVIDERS: ATTEND Family Medicine
DX: S81.809A Unspecified open wound, unspecified lower leg, initial encounter (principal); E11.9 Type 2 diabetes mellitus without complications; E66.01 Morbid (severe) obesity due to excess calories; R60.9 Edema, unspecified; I70.202 Unspecified atherosclerosis of native arteries of extremities, left leg
CPT/HCPCS: 75635; Q9967

== ENCOUNTER 2018-08-11 04:27 | Emergency (ER) | payer MEDICARE, OTHER ==
[2018-08-11] MEDS ORDERED: ACETAMINOPHEN ORAL SOLUTION 325 MG/10.15 ML CUP ONE (05:00)
[2018-08-11] MEDS ORDERED: CIPROFLOXACIN IN 5 % DEXTROSE 400 MG/200 ML BAG IV ONE (05:00)
[2018-08-11] MEDS ORDERED: NORMAL SALINE 1,000 ML IV.SOLN IV ONE (05:00)
[2018-08-22 08:35] LABS: BASOPHILS % 0.7 % (0.0-1.5); NEUTROPHILS # 15.2 # k/uL (1.4-7.7); eGFR (Non-African) > 60
[2018-08-22 08:41] LABS: APPEARANCE,URINE CLOUDY (CLEAR); COLOR,URINE YELLOW (YELLOW); OCCULT BLOOD,URINE 1+ (NEGATIVE); UROBILINOGEN URINE 0.2 Eu (0.2-1.0)
--- NOTE | 2018-09-29 16:45 | Diagnostic Imaging Report ---
ROBINSON LYMAN (CHANNEL DIRECTOR) - ER [facility] [address] [facility] [address] [place], [place]. [id number] Report Submission Date: Aug 11, 2018 6:15:30 AM CDT Patient Study Name: BEVERLY TODD Date: Aug 11, 2018 5:11:50 AM CDT Modality Type: DX Gender: F Description: CHEST 1VIEW : 33 Institution: [facility] Physician: ROBINSON LYMAN (CHANNEL DIRECTOR) - ER Portable chest History: Short of breath Portable chest dated August 11, 2018 demonstrates cardiomegaly. Pulmonary vascularity is normal. Lungs are clear. Surgical clips are present at the thoracic inlet. Impression: Cardiomegaly. No active disease. Electronically signed on Aug 11, 2018 6:15:30 AM CDT by: Camila COVARRUBIAS
== END 2018-08-11 06:50 ==
LOC: ED 04:27
DX: I87.8 Other specified disorders of veins (principal); I50.9 Heart failure, unspecified
CPT/HCPCS: 36600; 51702; 71045; 80053; 81002; 82803; 83605; 83880; 85025; 85610; 87040; 87086; J0744; J7030